=== PATIENT | male | born 1980 | race Caucasian/White ===

== ENCOUNTER → 2018-06-16 | Outpatient (CLI) | payer BC ==
--- NOTE | 2018-06-16 20:18 | CONS ---
CONSULTATION DATE OF SERVICE: 06/16/2018 37-year-old gentleman who has been evaluated in the sleep center for possible obstructive sleep apnea-hypopnea syndrome. HISTORY OF PRESENT ILLNESS/SLEEP-WAKE EVALUATION: Patient usual sleep schedule on working days from 10 p.m. until 4:30-4:45 a.m. On weekends his schedule from 10:30-midnight until 7-8-9:00 a.m. Sometimes he has problem with falling asleep, but not more than for 30 minutes. No TV in bedroom. He has snoring and wakes up from sleep with episodes of gasping for air. He wakes up from sleep up to 4 times with 1 episode of nocturia. In the morning, he wakes up tired, has difficulties to pay attention. Sibley Sleepiness Scale significantly increased to 13. He takes naps once at noontime. He may see vivid dreams during nap. No history of hypnagogic hallucinations. No history of sleep paralysis. Sibley Sleepiness Scale significantly increased to 13. Patient has problems with memory, concentration, irritability. PAST MEDICAL HISTORY: Positive for acid reflux. PAST SURGICAL HISTORY: Left elbow surgery, right hand surgery, right knee surgery, cholecystectomy. MEDICATIONS: Prilosec. SOCIAL HISTORY: Positive for smoking about 1 pack a day for 6 years, quit more than 15 years ago. Alcohol consumption up to 6 beers about 3 times per week. REVIEW OF SYSTEMS: Multiple awakenings from sleep, tiredness and sleepiness during the day. FAMILY HISTORY: Acid reflux, cancer. PHYSICAL EXAM: GENERAL A gentleman without distress. VITAL SIGNS BP 110/68, HR 72, RR 16, height 5 feet 10 inches, weight 213, BMI 30.5, temperature 97.9, oxygen saturation on room air 97%. HEENT PERRLA, EOMI, evaluation of oropharynx showed low position of soft palate. Restriction of nasal breathing on the right side. NECK 15-1/2 inches in circumference. Supple, no JVD. Thyroid is not palpable. LUNGS Clear to percussion and to auscultation. Good air exchange. No wheezing or rhonchi. HEART S1, S2 regular. No murmurs, gallops, or rubs. ABDOMEN Slightly obese. Soft and nontender. Bowel sounds are present. No organomegaly appreciated. EXTREMITIES No clubbing or cyanosis. CHIEF CLIENT OFFICER Awake, alert, and oriented X3. Cranial nerves 2 to 7 intact. There is no fasciculation or atrophy. noted. No focal deficits observed. IMPRESSION: 1. Snoring, awakenings from sleep with choking and gasping for air, low position of soft palate, excessive daytime sleepiness. Sibley Sleepiness Scale 13. Obstructive sleep apnea-hypopnea syndrome. 2. Acid reflux. 3. Mild obesity, BMI 30.5. 4. Status post cholecystectomy. 5. Status post left elbow surgery. 6. Status post right hand surgery. 7. Status post right knee surgery. 8. Restriction of nasal breathing, possibly nasal septum deviation. 9. History of nasal trauma teenage range. PLAN: 1. Home sleep apnea test for evaluation of patient's breathing during sleep. 2. CPAP/BiPAP titration if sleep study confirms obstructive sleep apnea-hypopnea syndrome. 3. Preferable position during sleep on the side. 4. No driving if patient feels any sleepiness. 5. I will see patient for follow up visit to explain results of testing and following plan. Marc Rasmussen MD, PhD, FAASM Diplomat of [employer] [employer] [employer] Senior Marketing Manager of [facility] MMODL / IJN: [id number] /
== END | disposition home or self-care (01) ==
LOC: SLEEP 16:41
PROVIDERS: ATTEND Internal Medicine
DX: G47.33 Obstructive sleep apnea (adult) (pediatric) (principal); G21.9 Secondary parkinsonism, unspecified; E66.9 Obesity, unspecified; Z90.49 Acquired absence of other specified parts of digestive tract; Z68.30 Body mass index [BMI] 30.0-30.9, adult; Z98.890 Other specified postprocedural states; Z99.89 Dependence on other enabling machines and devices; Z87.891 Personal history of nicotine dependence; Z79.899 Other long term (current) drug therapy
CPT/HCPCS: 99211